=== PATIENT | female | born 1975 | race Caucasian/White ===

== ENCOUNTER 2017-02-10 12:40 | Emergency (ER) | payer MEDICARE, MEDICAID, OTHER ==
[~2017-02-10] VITALS: Ht 162.6 cm; Wt 79.5 kg
[~2017-02-10 12:40] MED LIST: [UNRECOGNIZED DRUG - OTHER]
[2017-02-10 13:09] VITALS: BP 118/85; PULSE 81; RESP 20; O2SAT 96
--- NOTE | 2017-02-10 13:13 | ED.REPORT ---
HPI-General Illness Date of Service February 10, 2017 ED Provider: Homar Guerrero MD The patient is a 41 year old female who was brought to the emergency department by police for medical clearance for care home. The patient reports an abscess on her right forearm. The patient states she is supposed to have surgery on it soon. She is supposed to be taking antibiotics but has not been taking them as prescribed. The patient has history of heroin abuse and reports missing a vein on her right forearm which is what caused the abscess. She has no other concerns at this time. Nursing Notes Stated Complaint: FIT FOR HALF-WAY, ABSCESS ON ARM Chief Complaint: Skin Rash/Abscess Nursing Notes Reviewed: Yes Allergies: Coded Allergies: Penicillins (Verified Allergy, Unknown, 02/10/17) Scheduled Cephalexin (Keflex) 500 Mg Capsule 500 MG PO QID Sulfamethoxazole/Trimeth 800-160 mg (Bactrim DS) 1 Each Tablet 1 TABLET PO BID General Time Seen by MD: 13:11 Chief Complaint Medical clearance (for care home), Rash Hx Obtained From: Patient, Police Arrived By: Police Sudden in Onset?: No Onset Occurred: More than a week ago... Symptom Duration: Since onset Location: : Forearm right Quality: Painful Severity: Current: Severe Severity: Maximum: Moderate Recent Healthcare: No recent hospitalization, Recent doctor visit Similar Sx Previous: Yes Past Medical History Past Medical History COPD Family History Noncontributory Smoking History Unknown if Ever Smoker Social History Other Social History: Local resident Ambulatory Status Independent Review of Systems Full Review of Systems Skin: Reports Rash Complete sys rev & neg: except as marked. Physical Exam Vital Signs Vital Signs Date Time Temp Pulse Resp B/P Pulse Ox O2 Delivery O2 Flow Rate FiO2 02/10/17 13:09 36.2 81 20 118/85 96 Room Air Initial VS: Reviewed Head / Eyes: Atraumatic, Normocephalic, PERRL ENT: Mucous membranes moist, Conjunctiva normal, No scleral icterus Neck: Supple, Non-tender, Full range of motion Respiratory: Breath sounds normal, Clear to auscultation, No respiratory distress Cardiovascular: Regular rate & rhythm, Heart sounds normal, Intact distal pulses Abdomen / GI: Soft, Non-tender, No guarding, No rebound, No distention Lymphatic: No lymphadenopathy Extremities: Vascular intact, Neuro intact, No tenderness Neurologic: Alert, Oriented, Nonfocal Psychiatric: Mood/affect normal, Behavior normal, Normal thought content General/Constitutional: Awake, Alert, Cooperative Skin: Warm Rash / Lesion Notes: About her right forearm there is a 2x2 cm region of skin breakdown with ulceration present and granulation tissue at the base. There is mild surrounding cellulitis and some purulent drainage. There is no proximally spreading erythema. No fluctuance or evidence of underlying abscess. Re-Eval/Medical Decision Med Decision/Clinical Course The patient is a 41 year old female who was brought to the emergency department by police for medical clearance for care home. The patient reports an abscess on her right forearm. The patient states she is supposed to have surgery on it soon. She is supposed to be taking antibiotics but has not been taking them as prescribed. The patient has history of heroin abuse and reports missing a vein on her right forearm which is what caused the abscess. She has no other concerns at this time. Here in the emergency department the patient is afebrile stable vital signs and examination as above. She has a region of ulceration/skin breakdown about her forearm that is consistent with known skin popping. No evidence of abscess though there is some mild surrounding cellulitis and purulent drainage from the base of the ulcer. I do not feel that further intervention is immediately indicated. Advised to continue with wound care and prescribed a course of Bactrim and Keflex. I feel that she is appropriate for discharge to care home. Prior to discharge follow-up and return precautions were reviewed in detail with the patient who verbalized understanding and agreement with the plan. The patient was discharged in stable condition. Source of Hx: Old records Time of Eval: 13:26 Re-Evaluation/Progress Note: Discussed plan for discharge. All questions were addressed. Counseled Regarding: Diagnosis, Need for follow-up, When/why to return to ED Discharge & Departure Primary Impression: Cellulitis Site of cellulitis: extremity Site of cellulitis of extremity: upper extremity Laterality: right Qualified Code: L03.113 - Cellulitis of right upper limb Additional Impressions: Skin ulcer Non-pressure ulcer stage: limited to breakdown of skin Qualified Code: L98.491 - Non-pressure chronic ulcer of skin of other sites limited to breakdown of skin Heroin abuse Disposition: Home Discharge Condition All VS Reviewed: Yes Condition: Stable Patient Instructions: Cellulitis (ED) Additional Instructions: Thank you for seeking care at the emergency room. Our primary goal today in the ED was to evaluate you for any life-threatening conditions. Your evaluation was reassuring. You will be discharged with a prescription for Bactrim and Keflex. You should return to the ED immediately if you develop increased pain, redness or swelling, fevers, vomiting, or any other concerning signs or symptoms. Thank you for letting us partake in your care today. Scribe Attestation Portions of this note were transcribed by Delmi Chiu. I, Dr. Guerrero personally performed the history, physical exam and medical decision-making; I reviewed and confirmed the accuracy of the information in the transcribed note. Signed by: Flor Monge, 02/10/2017 at 1400. Homar Guerrero MD February 10, 2017 13:13 Delmi Chiu February 10, 2017 13:21
[2017-02-10] MEDS ORDERED: SULF1TAB7 PO (13:28)
[2017-02-10] MEDS ORDERED: CEPH-512 PO (13:28)
== END 2017-02-10 13:30 | disposition home or self-care (01) ==
LOC: SED 12:40 → MERGE 12:40 → SED 13:30
DX: L98.491 Non-pressure chronic ulcer of skin of other sites limited to breakdown of skin (principal); F11.10 Opioid abuse, uncomplicated; J44.9 Chronic obstructive pulmonary disease, unspecified; Z88.0 Allergy status to penicillin